=== PATIENT | male | born 1965 | race African-American/Black ===

== ENCOUNTER 2019-08-30 07:35 | Emergency (ER) | payer SELFPAY ==
[~2019-08-30] VITALS: Ht 203.2 cm; Wt 128.4 kg
[~2019-08-30 07:35] MED LIST: WARF10TA45 PO
[2019-08-30] MEDS ORDERED: IV NORMAL SALINE 1000ML BAG 1,000 ML IV ONE (08:15)
[2019-08-30 08:21] LABS: BASO % 1 % (0-3); EOS % 1 % (0-3); HEMATOCRIT 50.6 % (39.0-53.0); HEMOGLOBIN 17.1 g/dL (13.0-17.5); LYMPH % 60 % (24-48); MEAN CORPUSCULAR HEMOGLOBIN 31 pg (25-35); MEAN CORPUSCULAR HGB CONC 34 g/dL (31-37); MEAN CORPUSCULAR VOLUME 92 fL (79-100); MONO # 0.3 x10^3/uL (0.0-1.1); MONO % 8 % (0-9); NEUT % 30 % (31-73); PLATELET COUNT 157 x10^3/uL (140-400); RED BLOOD COUNT 5.51 x10^6/uL (4.30-5.70); RED CELL DISTRIBUTION WIDTH 13.2 % (11.5-14.5); WHITE BLOOD COUNT 3.3 x10^3/uL (4.0-11.0)
[2019-08-30] MEDS ORDERED: KETOROLAC 30 MG/ML VIAL. IVP ONE (08:30)
--- NOTE | 2019-08-30 08:35 | PHYS DOC ---
Past Medical History Past Medical History: Other Additional Past Medical Histor: BLOOD CLOT LEFT LEG, DEPRESSION Past Surgical History: No Surgical History Alcohol Use: None Drug Use: None Adult General Chief Complaint Chief Complaint: LOWER EXT PAIN HPI HPI Patient is a 53 year old male who presents with complaining of leg pain. Patient complaining of left lower extremity pain and edema for the last 10 days as a constant pain that getting worse with bearing weight and walking. Patient rated his pain 6 with rest and 8 with activity and denies injury fever and chills, shortness of breath, focal neuro deficit. Said he was seen at urgent care 10 days ago and treated with Keflex without improvement of his pain. Patient states he has discoloration of his leg for years but has increase of dis coloration of his leg for the last 10 days. 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 Patient states he had episodes of diarrhea for the last few days and feels dehydrated. Review of Systems Review of Systems Constitutional: Denies fever or chills [] Eyes: Denies change in visual acuity, redness, or eye pain [] HENT: Denies nasal congestion or sore throat [] Respiratory: Denies cough or shortness of breath [] Cardiovascular: No additional information not addressed in HPI [] GI: Denies abdominal pain, nausea, vomiting, bloody stools, reports diarrhea [] : Denies dysuria or hematuria [] Musculoskeletal: Denies back pain, reports joint pain [] Integument: Denies rash or skin lesions [] Neurologic: Denies headache, focal weakness or sensory changes [] Endocrine: Denies polyuria or polydipsia [] All other systems were reviewed and found to be within normal limits, except as documented in this note. Current Medications Current Medications Current Medications Medications (Trade) Dose Ordered Sig/Roxane Start Time Stop Time Status Last Admin Dose Admin Enoxaparin Sodium (Lovenox 120mg Syringe) 120 mg 1X ONCE 08/30/19 09:00 08/30/19 09:01 DC 08/30/19 09:36 120 MG Ketorolac Tromethamine (Toradol 30mg Vial) 30 mg 1X ONCE 08/30/19 08:30 08/30/19 08:31 DC 08/30/19 08:52 30 MG Sodium Chloride 1,000 ml @ 1,000 mls/hr 1X ONCE 08/30/19 08:15 08/30/19 09:14 DC 08/30/19 08:15 1,000 MLS/HR Allergies Allergies Allergies Coded Allergies Type Severity Reaction Last Updated Verified No Known Drug Allergies 02/28/14 No Physical Exam Physical Exam Constitutional: Well developed, well nourished, mild distress, non-toxic appearance. [] HENT: Normocephalic, atraumatic. Eyes: PERRLA, EOMI, conjunctiva normal, no discharge. [] Neck: Normal range of motion, no tenderness, supple, no stridor. [] Cardiovascular:Heart rate regular rhythm, no murmur [] Lungs & Thorax: Bilateral breath sounds clear to auscultation [] Abdomen: Bowel sounds normal, soft, no tenderness, no masses, no pulsatile masses. [] Skin: Warm, dry. [] Back: No tenderness, no CVA tenderness. [] Extremities: Left lower extremity with edema and erythema up to mid calf with tenderness, chronic discoloration of medial ankle area, no cyanosis, no clubbing, ROM intact. Neurologic: Alert and oriented X 3, no focal deficits noted. [] Psychologic: Affect normal, judgement normal, mood normal. [] Current Patient Data Vital Signs Vital Signs Date Time Temp Pulse Resp B/P (MAP) Pulse Ox O2 Delivery O2 Flow Rate FiO2 08/30/19 09:45 74 16 138/74 (95) 99 Room Air 08/30/19 07:45 98.0 98.0 Lab Values Laboratory Tests Test 08/30/19 08:05 White Blood Count 3.3 x10^3/uL (4.0-11.0) L Red Blood Count 5.51 x10^6/uL (4.30-5.70) Hemoglobin 17.1 g/dL (13.0-17.5) Hematocrit 50.6 % (39.0-53.0) Mean Corpuscular Volume 92 fL (79-100) Mean Corpuscular Hemoglobin 31 pg (25-35) Mean Corpuscular Hemoglobin Concent 34 g/dL (31-37) Red Cell Distribution Width 13.2 % (11.5-14.5) Platelet Count 157 x10^3/uL (140-400) Neutrophils (%) (Auto) 30 % (31-73) L Lymphocytes (%) (Auto) 60 % (24-48) H Monocytes (%) (Auto) 8 % (0-9) Eosinophils (%) (Auto) 1 % (0-3) Basophils (%) (Auto) 1 % (0-3) Neutrophils # (Auto) 1.0 x10^3/uL (1.8-7.7) L Lymphocytes # (Auto) 2.0 x10^3/uL (1.0-4.8) Monocytes # (Auto) 0.3 x10^3/uL (0.0-1.1) Eosinophils # (Auto) 0.0 x10^3/uL (0.0-0.7) Basophils # (Auto) 0.0 x10^3/uL (0.0-0.2) Segmented Neutrophils % 25 % (35-66) L Lymphocytes % 62 % (24-48) H Atypical Lymphocytes % (Manual) 5 % (0-0) H Monocytes % 6 % (0-10) Basophils % 2 % (0-3) Platelet Estimate Adequate (ADEQUATE) Sodium Level 140 mmol/L (136-145) Potassium Level 4.2 mmol/L (3.5-5.1) Chloride Level 105 mmol/L (98-107) Carbon Dioxide Level 25 mmol/L (21-32) Anion Gap 10 (6-14) Blood Urea Nitrogen 8 mg/dL (8-26) Creatinine 0.9 mg/dL (0.7-1.3) Estimated GFR (Cockcroft-Gault) 107.6 BUN/Creatinine Ratio 9 (6-20) Glucose Level 96 mg/dL (70-99) Lactic Acid Level 1.5 mmol/L (0.4-2.0) Calcium Level 8.8 mg/dL (8.5-10.1) Total Bilirubin 0.7 mg/dL (0.2-1.0) Aspartate Amino Transferase (AST) 17 U/L (15-37) Alanine Aminotransferase (ALT) 18 U/L (16-63) Alkaline Phosphatase 61 U/L (46-116) Total Protein 7.8 g/dL (6.4-8.2) Albumin 3.7 g/dL (3.4-5.0) Albumin/Globulin Ratio 0.9 (1.0-1.7) L Laboratory Tests 08/30/19 08:05 Laboratory Tests 08/30/19 08:05 EKG EKG [] Radiology/Procedures Radiology/Procedures [][facility] [address] [place] [address] IMAGING REPORT Signed PATIENT: SCOOTER BELTRE ACCOUNT: [id number] : 1965 LOCATION: ER AGE: 53 SEX: M EXAM STATUS: DEP ER ORD. PHYSICIAN: CRIS DIA MD REASON: left lower extremity pain and edema, history of DVT 11 yrs ago PROCEDURE: VENOUS LOWER EXTREMITY LEFT Examination: VENOUS LOWER EXTREMITY LEFT History: Left lower extremity pain and edema. History of DVT 11 years ago. Comparison/Correlation: None FINDINGS: Left lower extremity duplex venous ultrasound exam was performed. Grayscale, color Doppler, and spectral Doppler imaging was performed. Compression and augmentation was performed. The left common femoral vein and greater saphenous vein are unremarkable. Partially occlusive thrombus which is chronic with acute components is noted involving superficial femoral vein, popliteal vein, posterior tibial vein, and peroneal veins. Incidental note is made of enlarged left groin lymph nodes with the largest measuring 1.9 cm x 1.5 cm x 1.3 cm. These are of indeterminate significance and may be reactive. IMPRESSION: Partially occlusive acute and chronic left lower extremity deep venous thrombosis involving the superficial femoral vein to the calf veins. Left groin lymph nodes are present and of indeterminate significance. These may be reactive. Correlate clinically in determining interval follow-up evaluation. The referring emergency room physician was verbally informed at 8:36 AM on 08/30/2019. Electronically signed by: Teodoro John MD (08/30/2019 11:15 AM) [facility] DICTATED and SIGNED BY: TEODORO JOHN MD DATE: 08/30/19 5178 Course & Med Decision Making Course & Med Decision Making Pertinent Labs and Imaging studies reviewed. (See chart for details) Evaluation of patient in ER showed 54-year-old male patient with history of previous DVT and complaining of left leg pain and edema for 10 days that did not get better with Laceration care. Patient had positive acute on chronic DVT in venous ultrasound and treated with Lovenox in ER and prescription for Lovenox and Coumadin was given(patient does not have insurance) and patient was advised follow-up with primary care physician and stop taking Keflex. I've spoken with the patient and/or caregivers. I've explained the patient's condition, diagnosis and treatment plan based on information available to me at this time. I've answered the patient's and/or caregivers questions and addressed any concerns. The patient and/or caregivers have a good understanding the patient's diagnosis, condition and treatment plan as can be expected at this point. Vital signs have been stabilized. The patient's condition is stable for discharge from the emergency department. The patient will pursue further outpatient evaluation with her primary care provider or other designated consulting physician as outlined in the discharge instructions. Patient and/or caregivers are agreeable to this plan of care and follow-up instructions have been explained in detail. The patient and/or caregivers have received these instructions in written format and expressed understanding of these discharge instructions. The patient and her caregivers are aware that if any significant change in condition or worsening of symptoms should prompt him to immediately return to this of the closest emergency departm ent. If an emergent department is not readily available I would encourage him to call 911. Rocco Disclaimer Dragon Disclaimer This electronic medical record was generated, in whole or in part, using a voice recognition dictation system. Departure Departure Impression: Primary Impression: DVT of lower limb, acute Additional Impressions: Leukopenia Medication side effect Disposition: HOME, SELF-CARE (at 0918) Condition: STABLE Referrals: NO PCP (PCP) Patient Instructions: Deep Vein Thrombosis Additional Instructions: Follow-up with your primary care physician in 1-2 days for further treatment of deep vein thrombosis Return to ER if not getting better Scripts Warfarin Sodium (COUMADIN) 5 Mg Tablet 5 MG PO DAILY, #30 TAB Prov: CRIS DIA MD 08/30/19 Enoxaparin Sodium (LOVENOX) 120 Mg/0.8 Ml Disp.syrin 120 MG SQ DAILY for ANTI-COAGULANT, #4 DIS.SYR Prov: CRIS DIA MD 08/30/19 Problem Qualifiers Primary Impression: DVT of lower limb, acute Affected thrombotic vein of extremity: popliteal Laterality: left Qualified Codes: I82.432 - Acute embolism and thrombosis of left popliteal vein Additional Impressions: Leukopenia Leukopenia type: unspecified Qualified Codes: D72.819 - Decreased white blood cell count, unspecified CRIS DIA MD Aug 30, 2019 08:35
[2019-08-30 08:40] LABS: CALCIUM 8.8 mg/dL (8.5-10.1); CREATININE 0.9 mg/dL (0.7-1.3); GFR 107.6; POTASSIUM 4.2 mmol/L (3.5-5.1)
[2019-08-30 08:48] LABS: ALBUMIN 3.7 g/dL (3.4-5.0); ALBUMIN/GLOBULIN RATIO 0.9 (1.0-1.7); TOTAL BILIRUBIN 0.7 mg/dL (0.2-1.0); TOTAL PROTEIN 7.8 g/dL (6.4-8.2)
[2019-08-30] MEDS ORDERED: ENOX120D SQ (09:20)
[2019-08-30] MEDS ORDERED: WARF-78 PO (09:20)
[2019-08-30 09:45] VITALS: BP 138/74
[2019-08-30 10:48] LABS: % ATYL 5 % (0-0); % BASOS 2 % (0-3); % LYMPHS 62 % (24-48); % MONOS 6 % (0-10); % SEGS 25 % (35-66); PLT ESTIMATE ADEQUATE (ADEQUATE)
--- NOTE | 2019-08-30 11:18 | RAD ---
Examination: VENOUS LOWER EXTREMITY LEFT History: Left lower extremity pain and edema. History of DVT 11 years ago. Comparison/Correlation: None FINDINGS: Left lower extremity duplex venous ultrasound exam was performed. Grayscale, color Doppler, and spectral Doppler imaging was performed. Compression and augmentation was performed. The left common femoral vein and greater saphenous vein are unremarkable. Partially occlusive thrombus which is chronic with acute components is noted involving superficial femoral vein, popliteal vein, posterior tibial vein, and peroneal veins. Incidental note is made of enlarged left groin lymph nodes with the largest measuring 1.9 cm x 1.5 cm x 1.3 cm. These are of indeterminate significance and may be reactive. IMPRESSION: Partially occlusive acute and chronic left lower extremity deep venous thrombosis involving the superficial femoral vein to the calf veins. Left groin lymph nodes are present and of indeterminate significance. These may be reactive. Correlate clinically in determining interval follow-up evaluation. The referring emergency room physician was verbally informed at 8:36 AM on 08/30/2019. Electronically signed by: Teodoro Mariee MD (08/30/2019 11:15 AM) [facility] [place]
== END 2019-08-30 09:53 | disposition home or self-care (01) ==
LOC: ER 07:35
DX: L81.8 Other specified disorders of pigmentation (principal); T36.1X5A Adverse effect of cephalosporins and other beta-lactam antibiotics, initial encounter; I82.432 Acute embolism and thrombosis of left popliteal vein; D72.819 Decreased white blood cell count, unspecified; Y92.89 Other specified places as the place of occurrence of the external cause
CPT/HCPCS: 36415; 80053; 83605; 85007; 85025; 93971; 96361; 96372; 96374; 99285; J1650; J1885; J7030

== ENCOUNTER 2019-09-13 22:18 | Emergency (ER) | payer SELFPAY ==
[~2019-09-13] VITALS: Ht 203.2 cm; Wt 121.3 kg
[~2019-09-13 22:18] MED LIST changes: +ENOX120D SQ; +WARF-78 PO
[2019-09-13] MEDS ORDERED: IV NORMAL SALINE 1000ML BAG 1,000 ML IV ONE (23:00)
[2019-09-13 23:20] LABS: BASO % 1 % (0-3); EOS # 0.1 x10^3/uL (0.0-0.7); EOS % 1 % (0-3); HEMATOCRIT 45.5 % (39.0-53.0); HEMOGLOBIN 15.3 g/dL (13.0-17.5); LYMPH # 2.6 x10^3/uL (1.0-4.8); LYMPH % 60 % (24-48); MEAN CORPUSCULAR HEMOGLOBIN 31 pg (25-35); MEAN CORPUSCULAR HGB CONC 34 g/dL (31-37); MEAN CORPUSCULAR VOLUME 91 fL (79-100); MONO # 0.4 x10^3/uL (0.0-1.1); MONO % 9 % (0-9); NEUT # 1.3 x10^3/uL (1.8-7.7); NEUT % 30 % (31-73); PLATELET COUNT 150 x10^3/uL (140-400); RED BLOOD COUNT 4.98 x10^6/uL (4.30-5.70); RED CELL DISTRIBUTION WIDTH 13.4 % (11.5-14.5); WHITE BLOOD COUNT 4.4 x10^3/uL (4.0-11.0)
[2019-09-13 23:25] LABS: CALCIUM 8.6 mg/dL (8.5-10.1); CREATININE 0.9 mg/dL (0.7-1.3); GFR 107.2; POTASSIUM 3.8 mmol/L (3.5-5.1)
[2019-09-13 23:28] LABS: PROTHROMBIN TIME PATIENT 19.1 SEC (11.7-14.0)
[2019-09-13 23:31] LABS: ALBUMIN 3.6 g/dL (3.4-5.0); TOTAL BILIRUBIN 0.4 mg/dL (0.2-1.0); TOTAL PROTEIN 7.2 g/dL (6.4-8.2)
[2019-09-13 23:43] LABS: % EOS 1 % (0-5); % LYMPHS 59 % (24-48); % MONOS 7 % (0-10); % SEGS 33 % (35-66)
[2019-09-13 23:45] LABS: PLT ESTIMATE ADEQUATE (ADEQUATE)
[2019-09-14 00:25] LABS: BILIRUBIN,URINE SMALL (NEG); CLARITY,URINE CLEAR; COLOR,URINE AMBER; NITRITE,URINE NEGATIVE (NEG); PROTEIN,URINE NEGATIVE (NEG-TRACE)
[2019-09-14 00:31] LABS: BACTERIA,URINE 0 /HPF (0-FEW); RBC,URINE RARE /HPF (0-2); SQUAMOUS EPITHELIAL CELL,UR FEW /LPF; WBC,URINE RARE /HPF (0-4)
--- NOTE | 2019-09-14 00:50 | PHYS DOC ---
Past Medical History Past Medical History: DVT, High Cholesterol, Other Additional Past Medical Histor: BLOOD CLOT LEFT LEG Past Surgical History: No Surgical History Smoking: Quit Greater Than 1 Year Alcohol Use: Occasionally Drug Use: None Adult General Chief Complaint Chief Complaint: URINARY RETENTION HPI HPI 54-year-old male presents with report of decreased urination today. Patient reports I "haven't felt the need to urinate for a while now ". Patient does report urinating yesterday. Denies he now discharge, fever/chills, or nausea/vomiting. Denies trauma. Denies history of urinary retention. Review of Systems Review of Systems Constitutional: Denies fever or chills Eyes: Denies redness or eye pain HENT: Denies nasal congestion or sore throat Respiratory: Denies cough or shortness of breath Cardiovascular: Denies chest pain or palpitations GI: Denies abdominal pain, nausea, or vomiting : Denies dysuria or hematuria; reports decreased urination Musculoskeletal: Denies back pain or joint pain Integument: Denies rash or skin lesions Neurologic: Denies headache, focal weakness or sensory changes Complete systems were reviewed and found to be within normal limits, except as documented in this note. Current Medications Current Medications Current Medications Medications (Trade) Dose Ordered Sig/Roxane Start Time Stop Time Status Last Admin Dose Admin Sodium Chloride 1,000 ml @ 1,000 mls/hr 1X ONCE 09/13/19 23:00 09/13/19 23:59 DC 09/13/19 23:09 1,000 MLS/HR Allergies Allergies Allergies Coded Allergies Type Severity Reaction Last Updated Verified No Known Drug Allergies 02/28/14 No Physical Exam Physical Exam Constitutional: Well developed, well nourished, no acute distress, non-toxic appearance HENT: Normocephalic, atraumatic, oropharynx moist Eyes: Conjunctiva normal, no discharge Neck: Normal range of motion, no tenderness, supple Cardiovascular: Heart rate normal, regular rhythm Lungs & Thorax: Bilateral breath sounds clear to auscultation, no wheezing Abdomen: Soft, no tenderness Skin: Warm, dry, no erythema, healing ulceration to medial aspect of left lower extremity Back: No tenderness, no CVA tenderness Extremities: ROM intact, 1+ edema to left lower extremity, medial aspect with healing ulceration Neurologic: Alert and oriented X 3, no focal deficits noted Psychologic: Affect anxious, judgement normal Current Patient Data Vital Signs Vital Signs Date Time Temp Pulse Resp B/P (MAP) Pulse Ox O2 Delivery O2 Flow Rate FiO2 09/14/19 01:00 68 15 98 09/13/19 22:26 97.8 128/86 (100) Room Air 97.8 Lab Values Laboratory Tests Test 09/13/19 23:05 09/14/19 00:05 White Blood Count 4.4 x10^3/uL (4.0-11.0) Red Blood Count 4.98 x10^6/uL (4.30-5.70) Hemoglobin 15.3 g/dL (13.0-17.5) Hematocrit 45.5 % (39.0-53.0) Mean Corpuscular Volume 91 fL (79-100) Mean Corpuscular Hemoglobin 31 pg (25-35) Mean Corpuscular Hemoglobin Concent 34 g/dL (31-37) Red Cell Distribution Width 13.4 % (11.5-14.5) Platelet Count 150 x10^3/uL (140-400) Neutrophils (%) (Auto) 30 % (31-73) L Lymphocytes (%) (Auto) 60 % (24-48) H Monocytes (%) (Auto) 9 % (0-9) Eosinophils (%) (Auto) 1 % (0-3) Basophils (%) (Auto) 1 % (0-3) Neutrophils # (Auto) 1.3 x10^3/uL (1.8-7.7) L Lymphocytes # (Auto) 2.6 x10^3/uL (1.0-4.8) Monocytes # (Auto) 0.4 x10^3/uL (0.0-1.1) Eosinophils # (Auto) 0.1 x10^3/uL (0.0-0.7) Basophils # (Auto) 0.0 x10^3/uL (0.0-0.2) Segmented Neutrophils % 33 % (35-66) L Lymphocytes % 59 % (24-48) H Monocytes % 7 % (0-10) Eosinophils % 1 % (0-5) Platelet Estimate Adequate (ADEQUATE) Prothrombin Time 19.1 SEC (11.7-14.0) H Prothrombin Time INR 1.6 (0.8-1.1) H Activated Partial Thromboplast Time 36 SEC (24-38) Sodium Level 143 mmol/L (136-145) Potassium Level 3.8 mmol/L (3.5-5.1) Chloride Level 106 mmol/L (98-107) Carbon Dioxide Level 25 mmol/L (21-32) Anion Gap 12 (6-14) Blood Urea Nitrogen 14 mg/dL (8-26) Creatinine 0.9 mg/dL (0.7-1.3) Estimated GFR (Cockcroft-Gault) 107.2 BUN/Creatinine Ratio 16 (6-20) Glucose Level 118 mg/dL (70-99) H Calcium Level 8.6 mg/dL (8.5-10.1) Magnesium Level 2.0 mg/dL (1.8-2.4) Total Bilirubin 0.4 mg/dL (0.2-1.0) Aspartate Amino Transferase (AST) 12 U/L (15-37) L Alanine Aminotransferase (ALT) 15 U/L (16-63) L Alkaline Phosphatase 60 U/L (46-116) Total Protein 7.2 g/dL (6.4-8.2) Albumin 3.6 g/dL (3.4-5.0) Albumin/Globulin Ratio 1.0 (1.0-1.7) Urine Collection Type Unknown Urine Color Cammy Urine Clarity Clear Urine pH 7.0 Urine Specific [place] >=1.030 Urine Protein Negative mg/dL (NEG-TRACE) Urine Glucose (UA) Negative mg/dL (NEG) Urine Ketones (Stick) Trace mg/dL (NEG) Urine Blood Negative (NEG) Urine Nitrite Negative (NEG) Urine Bilirubin Small (NEG) Urine Urobilinogen Dipstick 4.0 mg/dL (0.2 mg/dL) Urine Leukocyte Esterase Negative (NEG) Urine RBC Rare /HPF (0-2) Urine WBC Rare /HPF (0-4) Urine Squamous Epithelial Cells Few /LPF Urine Bacteria 0 /HPF (0-FEW) Urine Mucus Marked /LPF Laboratory Tests 09/13/19 23:05 Laboratory Tests 09/13/19 23:05 EKG EKG [] Radiology/Procedures Radiology/Procedures [] Course & Med Decision Making Course & Med Decision Making Pertinent Lab studies reviewed. (See chart for details) Patient presents with report of decreased urination. Bladder scan initially with less than 5 ML's. Labs obtained and posted to chart. UA without signs of infection. IV fluid hydration provided. Symptoms likely secondary to dehydration. Patient also with history of left leg DVT for which she has been started on Coumadin. Reports was seen by his PCP with INR check on Tuesday but is unclear but level came back. INR today subtherapeutic. Patient advised to increase dose to 10 mg daily until seen by PCP. Patient stable for discharge with outpatient follow-up with PCP. Discussed findings and plan with patient, who acknowledges understanding and agreement. Dragon Disclaimer Dragon Disclaimer This electronic medical record was generated, in whole or in part, using a voice recognition dictation system. Departure Departure Impression: Primary Impression: Oliguria Additional Impression: Subtherapeutic anticoagulation Disposition: HOME, SELF-CARE Condition: IMPROVED Referrals: NO PCP (PCP) Patient Instructions: Prothrombin Time, International Normalized Ratio Additional Instructions: Your decreased urine is likely secondary to dehydration. Increase your fluid hydration. (take your weight in lbs and divide by 2= this will be the amount of daily water consumption in oz) Your INR (Coumadin level) was subtherapeutic (too low) at 1.6. Please increased your dosing to 2 tabs (10mg) daily until you are instructed by your doctor to change. Please contact them for notification of your level and to have level rechecked in next 3-5 days. Problem Qualifiers JESSICA GARRISON DO Sep 14, 2019 00:50
[2019-09-14 01:00] VITALS: BP 118/81
== END 2019-09-14 01:10 | disposition home or self-care (01) ==
LOC: ER 22:18
DX: R34 Anuria and oliguria (principal); D68.318 Other hemorrhagic disorder due to intrinsic circulating anticoagulants, antibodies, or inhibitors; I82.409 Acute embolism and thrombosis of unspecified deep veins of unspecified lower extremity; E78.00 Pure hypercholesterolemia, unspecified
CPT/HCPCS: 36415; 80053; 81001; 83735; 85007; 85025; 85610; 85730; 87491; 87591; 99285; J7030; 99284

== ENCOUNTER 2021-05-28 16:04 | Emergency (ER) | payer SELFPAY ==
[~2021-05-28] VITALS: Ht 203.2 cm; Wt 131.5 kg
[~2021-05-28 16:04] MED LIST changes: -WARF-78 PO; +WARF5TAB2 PO
[2021-05-28 18:13] VITALS: BP 164/101
== END 2021-05-28 19:08 | disposition left against medical advice (07) ==
LOC: ER 16:04
DX: M79.10 Myalgia, unspecified site (principal); R51.9 Headache, unspecified; R05 Cough; Z53.21 Procedure and treatment not carried out due to patient leaving prior to being seen by health care provider